=== PATIENT | male | born 1990 | race American Indian/Alaskan Native ===

== ENCOUNTER 2018-01-29 12:03 | Emergency (ER) | payer SELFPAY ==
[2018-01-29 12:27] VITALS: BP 142/83
--- NOTE | 2018-01-29 13:19 | Emergency Department Report ---
ED ENT HPI - General Chief complaint: Dental/Oral Stated complaint: SWALLON GUMS Time Seen by Provider: 01/29/18 12:58 Source: patient Mode of arrival: Ambulatory Limitations: No Limitations - History of Present Illness Initial comments: Pt reports that he has had L upper dental pain for a few days. MD complaint: tooth pain -: Gradual, days(s) (3) Location: tooth # (14) Severity: moderate Quality: aching Consistency: constant Improves with: none Worsens with: none Context- Dental: history of dental caries Associated Symptoms: gum swelling, toothache. denies: pain with swallowing, sore throat - Related Data Previous Rx's Medication Instructions Recorded Last Taken Type Amoxicillin [Amoxicillin TAB] 875 mg PO BID #20 tablet 01/29/18 Unknown Rx Ibuprofen [Motrin] 800 mg PO Q8HR PRN #21 tablet 01/29/18 Unknown Rx Allergies Allergy/AdvReac Type Severity Reaction Status Date / Time No Known Allergies Allergy Verified 01/29/18 12:24 ED Dental HPI - General Chief complaint: Dental/Oral Stated complaint: SWALLON GUMS Time Seen by Provider: 01/29/18 12:58 Source: patient Mode of arrival: Ambulatory Limitations: No Limitations - Related Data Previous Rx's Medication Instructions Recorded Last Taken Type Amoxicillin [Amoxicillin TAB] 875 mg PO BID #20 tablet 01/29/18 Unknown Rx Ibuprofen [Motrin] 800 mg PO Q8HR PRN #21 tablet 01/29/18 Unknown Rx Allergies Allergy/AdvReac Type Severity Reaction Status Date / Time No Known Allergies Allergy Verified 01/29/18 12:24 ED Review of Systems ROS: Stated complaint: SWALLON GUMS Other details as noted in HPI Comment: All other systems reviewed and negative Constitutional: denies: chills, fever Eyes: denies: eye pain, eye discharge, vision change ENT: dental pain. denies: ear pain, throat pain Respiratory: denies: cough, shortness of breath, wheezing Cardiovascular: denies: chest pain, palpitations Endocrine: no symptoms reported Gastrointestinal: denies: abdominal pain, nausea, diarrhea Genitourinary: denies: urgency, dysuria Musculoskeletal: denies: back pain, joint swelling, arthralgia Skin: denies: rash, lesions Neurological: denies: headache, weakness, paresthesias Psychiatric: denies: anxiety, depression Hematological/Lymphatic: denies: easy bleeding, easy bruising ED Past Medical Hx - Past Medical History Previous Medical History?: No - Surgical History Past Surgical History?: No - Social History Smoking Status: Current Some Day Smoker Substance Use Type: Alcohol - Medications Home Medications: Home Medications Medication Instructions Recorded Confirmed Last Taken Type Amoxicillin [Amoxicillin TAB] 875 mg PO BID #20 tablet 01/29/18 Unknown Rx Ibuprofen [Motrin] 800 mg PO Q8HR PRN #21 tablet 01/29/18 Unknown Rx ED Physical Exam - General Limitations: No Limitations General appearance: alert, in no apparent distress (Pt eating Doritos) - Head Head exam: Present: atraumatic, normocephalic - Eye Eye exam: Present: normal appearance - ENT ENT exam: Present: mucous membranes moist - Expanded ENT Exam Expanded Mouth exam: Present: tongue normal. Absent: drooling, trismus Teeth exam: Present: dental caries, dental tenderness # (14), other (no facial or neck swelling. ) Throat exam: Positive: normal inspection - Neck Neck exam: Present: normal inspection - Respiratory Respiratory exam: Present: normal lung sounds bilaterally. Absent: respiratory distress - Cardiovascular Cardiovascular Exam: Present: regular rate, normal rhythm. Absent: systolic murmur, diastolic murmur, rubs, gallop - GI/Abdominal GI/Abdominal exam: Present: soft, normal bowel sounds - Rectal Rectal exam: Present: deferred - Extremities Exam Extremities exam: Present: normal inspection - Back Exam Back exam: Present: normal inspection - Neurological Exam Neurological exam: Present: alert, oriented X3 - Psychiatric Psychiatric exam: Present: normal affect, normal mood - Skin Skin exam: Present: warm, dry, intact, normal color. Absent: rash ED Course Vital Signs 01/29/18 12:24 Temperature 98.1 F Pulse Rate 95 H Respiratory 16 Rate Blood Pressure 142/83 O2 Sat by Pulse 98 Oximetry - Reevaluation(s) Reevaluation #1: 01/29/18 13:17 Pt stable for d/c. ED Medical Decision Making - Medical Decision Making Will give Amoxil and Motrin for dental abscess and he already has f/u scheduled. - Differential Diagnosis dental caries, abscess Critical care attestation.: If time is entered above; I have spent that time in minutes in the direct care of this critically ill patient, excluding procedure time. ED Disposition Clinical Impression: Dentalgia Disposition: DC TO HOME OR SELFCARE Is pt being admited?: No Condition: Good Instructions: Dental Abscess (ED) Additional Instructions: Keep your follow up appointment with dentist. Prescriptions: Amoxicillin [Amoxicillin TAB] 875 mg PO BID #20 tablet Ibuprofen [Motrin] 800 mg PO Q8HR PRN #21 tablet PRN Reason: Pain Referrals: QUINTIN WRIGHT MD [Primary Care Provider] - 3-5 Days Time of Disposition: 13:18
== END 2018-01-29 13:28 | disposition home or self-care (01) ==
LOC: ED 12:03
DX: K02.9 Dental caries, unspecified (principal); F17.200 Nicotine dependence, unspecified, uncomplicated
CPT/HCPCS: 99282

== ENCOUNTER 2018-04-06 12:08 | Emergency (ER) | payer OTHER ==
[2018-04-06 12:37] VITALS: BP 109/67
--- NOTE | 2018-04-06 14:33 | Emergency Department Report ---
Chief Complaint: Dental/Oral Stated Complaint: SWOLLEN GUMS Time Seen by Provider: 04/06/18 14:25 - HPI History of Present Illness: Mr. Lemus presents with toothache and gum swelling. mild dental caries. MSE performed. Referred to outside resources. Mr. Lemus has dental appt on April 20 - Exam Vital Signs: Vital Signs 04/06/18 12:34 Temperature 98.6 F Pulse Rate 96 H Respiratory 18 Rate Blood Pressure 109/67 O2 Sat by Pulse 96 Oximetry MSE screening note: Focused history and physical exam performed. Due to findings the following was ordered: ED Disposition for MSE Condition: Stable Referrals: PRIMARY CARE, [Primary Care Provider] - 3-5 Days
== END 2018-04-06 14:37 | disposition left against medical advice (07) ==
LOC: ED 12:08
DX: K08.89 Other specified disorders of teeth and supporting structures (principal); Z53.21 Procedure and treatment not carried out due to patient leaving prior to being seen by health care provider
CPT/HCPCS: 99281

== ENCOUNTER 2022-03-29 06:58 | Emergency (ER) | payer SELFPAY ==
[2022-03-29 07:27] VITALS: BP 119/78
== END 2022-03-30 07:38 | disposition left against medical advice (07) ==
LOC: ED 06:58
DX: R52 Pain, unspecified (principal); Z53.21 Procedure and treatment not carried out due to patient leaving prior to being seen by health care provider